=== PATIENT | male | born 1945 | race Caucasian/White ===

== ENCOUNTER 2021-02-22 17:48 | Inpatient (IN) | payer MEDICARE ==
[2021-02-22] MEDS ORDERED: Ondansetron PF 4 MG/2 ML Vial IVP PRN (20:15)
[2021-02-22] MEDS ORDERED: Acetaminophen 325 MG TAB PO PRN (20:15)
[2021-02-22] MEDS ORDERED: Dextrose 50% Abboject 50 ML SYRINGE SLOW IVP PRN (20:18)
[2021-02-22] MEDS ORDERED: Dextrose 5% in Water 1,000 ML IV PRN (20:18)
[2021-02-22] MEDS ORDERED: Nystatin Powder 15 GM BOT TOP PRN (20:55)
[2021-02-22] MEDS ORDERED: Famotidine 20 MG TAB PO SCH (21:00)
[2021-02-22 21:41] VITALS: BMI 31.8
[2021-02-22] MEDS: HumaLOG 300 UNITS/3 ML VIAL SC PRN (22:08)
[2021-02-22] MEDS ORDERED: Atorvastatin Calcium 40 MG TAB PO SCH (23:59)
[2021-02-23 03:42] LABS: INR-International Normal Ratio 1.1; PTT 41.8 sec (22.9-36.1); Prothrombin Time 14.4 sec (12.0-14.7)
[2021-02-23 03:48] LABS: #Eosinphils 0.4 thou/uL (0.0-0.7); #Lymphocytes 1.5 thou/uL (1.20-3.40); #Monocytes 1.4 thou/uL (0.11-0.59); #Neutrophils 8.8 thou/uL (1.40-6.50); %Basophils 0.4 % (0.0-1.0); %Lymphocytes 12.3 % (21.0-51.0); %Monocytes 11.7 % (0.0-10.0); %Neutrophils 72.6 % (42.0-75.0); Hemoglobin 11.4 g/dL (14.0-18.0); Mean Corpuscular HGB CONC 34.1 g/dL (32.0-36.0); Mean Corpuscular Hemoglobin 35.3 pg (27.0-31.0); Mean Platelet Volume 6.8 fL (7.4-10.4); Platelet Count 670 thou/uL (130-400); RBC Distribution Width 12.6 % (11.5-14.5); Red Blood Cell (RBC) Count 3.23 mill/uL (4.70-6.10); White Blood Cell (WBC) Count 12.1 thou/uL (4.8-10.8)
[2021-02-23 04:01] LABS: Anion Gap 13 mmol/L (10-20); BUN (Urea Nitrogen) 42 mg/dL (8.4-25.7); Calc. Creatinine Clearance 52 mL/min (70-130); Calcium 9.1 mg/dL (7.8-10.44); Carbon Dioxide 26 mmol/L (23-31); Chloride 107 mmol/L (98-107); Glucose 218 mg/dL (83-110); Potassium 3.8 mmol/L (3.5-5.1); Sodium 142 mmol/L (136-145)
[2021-02-23] MEDS: HumaLOG 300 UNITS/3 ML VIAL SC PRN (05:55)
[2021-02-23] MEDS ORDERED: Albumin 5% 500 ML ONE (08:28)
[2021-02-23] MEDS ORDERED: Hydroxyurea 500 MG CAP PO SCH (09:00)
[2021-02-23] MEDS ORDERED: Amoxicillin/Potassium Clav 875 MG TAB PO SCH (09:00)
[2021-02-23] MEDS ORDERED: Lisinopril 20 MG TAB PO SCH (09:00)
[2021-02-23] MEDS ORDERED: Carvedilol 6.25 MG TAB PO SCH (09:00)
[2021-02-23] MEDS ORDERED: Midazolam HCl 2 mg/2 ml Vial ONE (09:16)
[2021-02-23] MEDS ORDERED: Fentanyl 100 MCG/2 ML VIAL ONE (09:16)
[2021-02-23] MEDS ORDERED: Midazolam HCl 5 mg/5 ml Vial ONE (09:16)
[2021-02-23] MEDS ORDERED: Vecuronium 10 MG VIAL ONE ×3 (09:17→09:54)
[2021-02-23] MEDS ORDERED: Dexmedetomidine 200 MCG/2 ML VIAL ONE (09:17)
[2021-02-23] MEDS: Atorvastatin Calcium 40 MG TAB PO SCH (09:19)
[2021-02-23] MEDS ORDERED: Nitroglycerin 50 MG/250 ML BOT ONE (09:54)
[2021-02-23] MEDS ORDERED: Cardioplegic Soln 1,000 ML BAG ONE (09:54)
[2021-02-23] MEDS ORDERED: Heparin 30,000 units/30 ml VIAL ONE (09:54)
[2021-02-23] MEDS ORDERED: Ondansetron PF 4 MG/2 ML Vial ONE (09:54)
[2021-02-23] MEDS ORDERED: Aminocaproic Acid 5 GM/20 ML VIAL ONE (09:54)
[2021-02-23] MEDS ORDERED: Lidocaine 2% PF 100 mg/5 ml Syringe ONE (09:54)
[2021-02-23] MEDS ORDERED: Sodium Bicarb 50 MEQ/50 ML Abboject 8.4% SYRINGE ONE (09:54)
[2021-02-23] MEDS ORDERED: Ketorolac Tromethamine 30 MG/ML VIAL ONE (09:54)
[2021-02-23] MEDS ORDERED: Protamine Sulfate 250 MG/25 ML VIAL ONE (09:54)
[2021-02-23] MEDS ORDERED: Potassium Chloride 60 MEQ/30 ML VIAL ONE (09:54)
[2021-02-23] MEDS ORDERED: Dexamethasone 20 MG/5 ML VIAL ONE (09:54)
[2021-02-23] MEDS ORDERED: Thrombin 5000 UNITS/5 ML VIAL ONE (09:54)
[2021-02-23] MEDS ORDERED: Magnesium Sulfate 1 GM/2 ML VIAL ONE (09:54)
[2021-02-23] MEDS ORDERED: Calcium Chloride 1 GM/10 ML Abboject SYRINGE ONE (09:54)
[2021-02-23] MEDS ORDERED: PHENYLEPHRINE-NS 100 MCG/ML 10 ML SYRINGE ONE ×2 (09:54→12:16)
[2021-02-23] MEDS ORDERED: Mannitol 12.5 GM/50 ML ONE (09:54)
[2021-02-23] MEDS ORDERED: ePHEDrine Sulfate 50 MG/10 ML VIAL ONE (09:54)
[2021-02-23] MEDS ORDERED: Heparin 5,000 UNITS/ML VIAL ONE (09:54)
[2021-02-23] MEDS ORDERED: Lidocaine 1% PF 5 ML VIAL ONE ×2 (09:54)
[2021-02-23] MEDS ORDERED: Papaverine 60 MG/2 ML VIAL ONE (09:54)
[2021-02-23] MEDS ORDERED: Insulin Regular 300 UNITS/3 ML VIAL ONE (10:40)
[2021-02-23] MEDS ORDERED: Hetastarch 6% 500 ML 500 ML IVPB PRN (14:01)
[2021-02-23] MEDS ORDERED: Morphine 2 MG/ML VIAL SLOW IVP PRN (14:01)
[2021-02-23] MEDS ORDERED: Acetaminophen 325 MG TAB PO PRN (14:01)
[2021-02-23] MEDS ORDERED: Mag-Al 1200 mg/1200 mg/30 ML UDCUP PO PRN (14:01)
[2021-02-23] MEDS ORDERED: Fentanyl 100 MCG/2 ML VIAL SLOW IVP PRN ×2 (14:01)
[2021-02-23] MEDS ORDERED: Bisacodyl 10 MG SUPP PR PRN (14:01)
[2021-02-23] MEDS ORDERED: Guaifenesin DM 100-10/5 ML UDCUP PO PRN (14:01)
[2021-02-23] MEDS ORDERED: Ondansetron PF 4 MG/2 ML Vial IVP PRN (14:01)
[2021-02-23] MEDS ORDERED: Post-Op Insulin Drip Protocol IVPB ONE (14:01)
[2021-02-23] MEDS ORDERED: hydrALAZINE 20 MG/ML VIAL SLOW IVP PRN (14:01)
[2021-02-23] MEDS ORDERED: HYDROcodone/Acetaminophen 5/325 mg Tablet PO PRN ×2 (14:01)
[2021-02-23] MEDS ORDERED: niCARdipine 25 MG in Sodium Chloride 0.9% 250 ML 250 ML IVPB PRN (14:01)
[2021-02-23] MEDS ORDERED: Norepinephrine 8 MG/0.9% NS 250 ML IVPB PRN (14:01)
[2021-02-23] MEDS ORDERED: Bisacodyl 5 MG TAB PO PRN (14:01)
[2021-02-23] MEDS ORDERED: Nitroglycerin 50 MG/250 ML BOT 250 ML IVPB PRN (14:01)
[2021-02-23] MEDS ORDERED: DOBUTamine 500 mg/250 ml 250 ML ONE (14:06)
[2021-02-23 14:14] LABS: Hemoglobin 11.1 g/dL (14.0-18.0); Mean Corpuscular HGB CONC 33.7 g/dL (32.0-36.0); Mean Corpuscular Hemoglobin 35.2 pg (27.0-31.0); Mean Platelet Volume 6.6 fL (7.4-10.4); Platelet Count 498 thou/uL (130-400); RBC Distribution Width 12.7 % (11.5-14.5); Red Blood Cell (RBC) Count 3.15 mill/uL (4.70-6.10); White Blood Cell (WBC) Count 24.1 thou/uL (4.8-10.8)
[2021-02-23 14:18] LABS: INR-International Normal Ratio 1.3; Prothrombin Time 16.4 sec (12.0-14.7)
[2021-02-23] MEDS ORDERED: Dextrose 5% in Water 1,000 ML IV PRN (14:30)
[2021-02-23] MEDS ORDERED: HUMULIN R 100 UNITS in Sodium Chloride 0.9% 100 ML IVPB SCH (14:30)
[2021-02-23] MEDS: DOBUTamine 500 mg/250 ml 250 ML IVPB SCH (14:30)
[2021-02-23] MEDS ORDERED: Dextrose 50% Abboject 50 ML SYRINGE SLOW IVP PRN (14:30)
[2021-02-23] MEDS: Lactated Ringer's 1,000 ML IV SCH (14:30)
[2021-02-23] MEDS: CEFAZOLIN 2 GM in Premix Bag 1 BAG IVPB SCH ×2 (14:31→21:35)
[2021-02-23 14:36] LABS: Anion Gap 14 mmol/L (10-20); BUN (Urea Nitrogen) 36 mg/dL (8.4-25.7); Calc. Creatinine Clearance 57 mL/min (70-130); Calcium 8.5 mg/dL (7.8-10.44); Carbon Dioxide 23 mmol/L (23-31); Chloride 110 mmol/L (98-107); Glucose 105 mg/dL (83-110); Potassium 3.8 mmol/L (3.5-5.1); Sodium 143 mmol/L (136-145)
[2021-02-23] MEDS: Potassium Chloride 20 MEQ/100 ML PREMIX BAG IVPB PRN (15:04)
[2021-02-23 15:08] LABS: Band 17 % (5-11); Eosinophils 2 % (0-10); Lymphocytes 5 % (21-51); MDiff Complete? YES; Macrocytosis SLIGHT = 6-15 cells (100X) (0-5/hpf); Metamyelocyte 1 % (0-0); Monocytes 4 % (0-10); Myelocyte 1 % (0-0); Neutrophil 70 % (42-75); Platelet Morphology Comment Appears Increased; Polychromasia SLIGHT = 2-3 cells (100X) (0-2/hpf)
[2021-02-23 19:51] LABS: Hemoglobin 10.4 g/dL (14.0-18.0)
[2021-02-23 20:08] LABS: Potassium 4.4 mmol/L (3.5-5.1)
[2021-02-23] MEDS ORDERED: Famotidine 20 MG TAB PO SCH (21:00)
[2021-02-23] MEDS: Famotidine/PF 20 mg/2ml Vial SLOW IVP SCH (21:35)
[2021-02-24] MEDS: Lactated Ringer's 1,000 ML IV SCH (02:40)
[2021-02-24 04:31] LABS: #Lymphocytes 1.4 thou/uL (1.20-3.40); #Monocytes 1.8 thou/uL (0.11-0.59); #Neutrophils 13.5 thou/uL (1.40-6.50); %Eosinophils 0.2 % (0.0-10.0); %Lymphocytes 8.2 % (21.0-51.0); %Monocytes 10.5 % (0.0-10.0); Hemoglobin 9.4 g/dL (14.0-18.0); Mean Corpuscular HGB CONC 33.1 g/dL (32.0-36.0); Mean Corpuscular Hemoglobin 35.2 pg (27.0-31.0); Mean Platelet Volume 6.9 fL (7.4-10.4); Platelet Count 474 thou/uL (130-400); RBC Distribution Width 12.6 % (11.5-14.5); Red Blood Cell (RBC) Count 2.67 mill/uL (4.70-6.10); White Blood Cell (WBC) Count 16.6 thou/uL (4.8-10.8)
[2021-02-24 04:53] LABS: Anion Gap 18 mmol/L (10-20); BUN (Urea Nitrogen) 34 mg/dL (8.4-25.7); Calc. Creatinine Clearance 57 mL/min (70-130); Calcium 8.2 mg/dL (7.8-10.44); Carbon Dioxide 18 mmol/L (23-31); Chloride 110 mmol/L (98-107); Glucose 126 mg/dL (83-110); Sodium 142 mmol/L (136-145)
[2021-02-24] MEDS: CEFAZOLIN 2 GM in Premix Bag 1 BAG IVPB SCH (06:16)
[2021-02-24] MEDS: Potassium Chloride 20 MEQ/100 ML PREMIX BAG IVPB PRN (08:21)
[2021-02-24] MEDS: Polyethylene Glycol 3350 17 GM Packet PO SCH (08:22)
[2021-02-24] MEDS: Famotidine/PF 20 mg/2ml Vial SLOW IVP SCH (08:22)
[2021-02-24] MEDS: Atorvastatin Calcium 40 MG TAB PO SCH (08:22)
[2021-02-24] MEDS: Hydroxyurea 500 MG CAP PO SCH (08:22)
[2021-02-24] MEDS: Aspirin Chewable 81 MG TAB PO SCH (08:22)
[2021-02-24] MEDS: Insulin Regular 300 UNITS/3 ML VIAL SC PRN ×4 (08:34→21:56)
[2021-02-24] MEDS ORDERED: Hydroxyurea 500 MG CAP PO SCH (09:00)
[2021-02-24] MEDS ORDERED: Carvedilol 6.25 MG TAB PO SCH (09:30)
[2021-02-24] MEDS: Carvedilol 3.125 MG TAB PO SCH (16:32)
[2021-02-24] MEDS: DOBUTamine 500 mg/250 ml 250 ML IVPB SCH (16:42)
[2021-02-24] MEDS: Lantus 1000 UNITS/10 ML VIAL SC SCH (21:55)
[2021-02-24] MEDS: Famotidine 20 MG TAB PO SCH (21:55)
[2021-02-25] MEDS: Insulin Regular 300 UNITS/3 ML VIAL SC PRN ×4 (00:32→22:22)
[2021-02-25 05:26] LABS: #Eosinphils 0.1 thou/uL (0.0-0.7); #Lymphocytes 1.2 thou/uL (1.20-3.40); #Monocytes 2.3 thou/uL (0.11-0.59); #Neutrophils 13.9 thou/uL (1.40-6.50); %Basophils 0.1 % (0.0-1.0); %Eosinophils 0.8 % (0.0-10.0); %Lymphocytes 7.1 % (21.0-51.0); Hemoglobin 9.4 g/dL (14.0-18.0); Mean Corpuscular Hemoglobin 35.8 pg (27.0-31.0); Mean Platelet Volume 6.8 fL (7.4-10.4); Platelet Count 494 thou/uL (130-400); RBC Distribution Width 12.7 % (11.5-14.5); Red Blood Cell (RBC) Count 2.62 mill/uL (4.70-6.10); White Blood Cell (WBC) Count 17.5 thou/uL (4.8-10.8)
[2021-02-25 05:30] LABS: Hemoglobin A1c 7.7 % (4.0-6.0)
[2021-02-25 05:49] LABS: Anion Gap 13 mmol/L (10-20); BUN (Urea Nitrogen) 25 mg/dL (8.4-25.7); Calc. Creatinine Clearance 69 mL/min (70-130); Calcium 8.4 mg/dL (7.8-10.44); Carbon Dioxide 24 mmol/L (23-31); Cardiac Risk 2.9 (Less than 4.5); Chloride 107 mmol/L (98-107); Cholesterol 83 mg/dl (< 200 Desired); Glucose 207 mg/dL (83-110); HDL Cholesterol 29 mg/dL (>60 Neg Risk); LDL Cholesterol, Calculated 38 mg/dL; Potassium 4.1 mmol/L (3.5-5.1); Sodium 140 mmol/L (136-145); Triglycerides 82 mg/dL (Less than 150)
[2021-02-25] MEDS ORDERED: Nitroglycerin 0.4 MG TAB (25 Tab Bottle) SL PRN (07:35)
[2021-02-25] MEDS ORDERED: Mineral Oil ENEMA PR PRN (07:35)
[2021-02-25] MEDS ORDERED: Dextrose 5% in Water 1,000 ML IV PRN ×2 (09:00→12:15)
[2021-02-25] MEDS ORDERED: Dextrose 50% Abboject 50 ML SYRINGE SLOW IVP PRN (09:00)
[2021-02-25] MEDS: Furosemide 40 MG TAB PO SCH ×2 (09:34→21:33)
[2021-02-25] MEDS: Enoxaparin Sodium 40 MG/0.4 ML SYRINGE SC SCH (09:34)
[2021-02-25] MEDS: Polyethylene Glycol 3350 17 GM Packet PO SCH (09:34)
[2021-02-25] MEDS: Famotidine 20 MG TAB PO SCH ×2 (09:35→21:33)
[2021-02-25] MEDS: Hydroxyurea 500 MG CAP PO SCH (09:35)
[2021-02-25] MEDS: Lisinopril 2.5 MG TAB PO SCH (09:35)
[2021-02-25] MEDS: Potassium Chloride 20 MEQ TAB PO SCH (09:35)
[2021-02-25] MEDS: Aspirin Chewable 81 MG TAB PO SCH (09:36)
[2021-02-25] MEDS: Carvedilol 3.125 MG TAB PO SCH ×2 (09:36→16:33)
[2021-02-25] MEDS ORDERED: Dextrose 50% Abboject 50 ML SYRINGE IVP PRN (12:15)
[2021-02-25] MEDS ORDERED: Digoxin 0.5 MG/2 ML AMP ONE (17:59)
[2021-02-25] MEDS: Digoxin 0.5 MG/2 ML AMP SLOW IVP SCH ×2 (18:40→23:51)
[2021-02-25] MEDS ORDERED: DOBUTamine 500 mg/250 ml 250 ML IVPB SCH (18:45)
[2021-02-25] MEDS: Diltiazem HCl 125 MG, Admixture Fee 1 EACH in Sodium Chloride 0.9% 100 ML IVPB SCH (21:25)
[2021-02-25] MEDS: Atorvastatin Calcium 10 MG TAB PO SCH (21:36)
[2021-02-25] MEDS: Lantus 1000 UNITS/10 ML VIAL SC SCH (22:21)
[2021-02-26] MEDS: Digoxin 0.5 MG/2 ML AMP SLOW IVP SCH (06:14)
[2021-02-26] MEDS: Potassium Chloride 20 MEQ TAB PO SCH (09:25)
[2021-02-26] MEDS: Enoxaparin Sodium 40 MG/0.4 ML SYRINGE SC SCH (09:26)
[2021-02-26] MEDS: Polyethylene Glycol 3350 17 GM Packet PO SCH (09:26)
[2021-02-26] MEDS: Hydroxyurea 500 MG CAP PO SCH (09:26)
[2021-02-26] MEDS: Carvedilol 3.125 MG TAB PO SCH ×2 (09:26→16:57)
[2021-02-26] MEDS: Famotidine 20 MG TAB PO SCH ×2 (09:26→20:19)
[2021-02-26] MEDS: Aspirin Chewable 81 MG TAB PO SCH (09:26)
[2021-02-26] MEDS: Furosemide 40 MG TAB PO SCH ×2 (09:26→20:19)
[2021-02-26] MEDS: Lisinopril 2.5 MG TAB PO SCH (09:26)
[2021-02-26 12:45] LABS: Glucose 215 mg/dL (83-110)
[2021-02-26] MEDS: Diltiazem HCl 125 MG, Admixture Fee 1 EACH in Sodium Chloride 0.9% 100 ML IVPB SCH (16:55)
[2021-02-26 17:05] LABS: Glucose 220 mg/dL (83-110)
[2021-02-26] MEDS: Atorvastatin Calcium 10 MG TAB PO SCH (20:19)
[2021-02-26] MEDS: Lantus 1000 UNITS/10 ML VIAL SC SCH (21:48)
[2021-02-27 05:00] LABS: Anion Gap 17 mmol/L (10-20); BUN (Urea Nitrogen) 33 mg/dL (8.4-25.7); Calc. Creatinine Clearance 61 mL/min (70-130); Calcium 8.5 mg/dL (7.8-10.44); Carbon Dioxide 21 mmol/L (23-31); Chloride 106 mmol/L (98-107); Glucose 141 mg/dL (83-110); Potassium 3.8 mmol/L (3.5-5.1); Sodium 140 mmol/L (136-145)
[2021-02-27 07:36] LABS: Glucose 141 mg/dL (83-110)
[2021-02-27] MEDS: Lisinopril 2.5 MG TAB PO SCH (08:43)
[2021-02-27] MEDS: Potassium Chloride 20 MEQ TAB PO SCH (08:43)
[2021-02-27] MEDS: Polyethylene Glycol 3350 17 GM Packet PO SCH (08:43)
[2021-02-27] MEDS: Famotidine 20 MG TAB PO SCH ×2 (08:43→20:40)
[2021-02-27] MEDS: Carvedilol 3.125 MG TAB PO SCH ×2 (08:43→17:04)
[2021-02-27] MEDS: Aspirin Chewable 81 MG TAB PO SCH (08:43)
[2021-02-27] MEDS: Enoxaparin Sodium 40 MG/0.4 ML SYRINGE SC SCH (08:44)
[2021-02-27] MEDS: Hydroxyurea 500 MG CAP PO SCH (08:44)
[2021-02-27] MEDS: Furosemide 40 MG TAB PO SCH ×2 (08:57→20:40)
[2021-02-27] MEDS: Insulin Regular 300 UNITS/3 ML VIAL SC PRN ×2 (11:42→17:59)
[2021-02-27 11:57] LABS: Glucose 256 mg/dL (83-110)
[2021-02-27 17:39] LABS: Glucose 173 mg/dL (83-110)
[2021-02-27] MEDS: Diltiazem HCl 125 MG, Admixture Fee 1 EACH in Sodium Chloride 0.9% 100 ML IVPB SCH (18:00)
[2021-02-27] MEDS: Lantus 1000 UNITS/10 ML VIAL SC SCH (20:44)
[2021-02-28] MEDS ORDERED: Lisinopril 2.5 MG TAB PO SCH (06:24)
[2021-02-28 08:26] LABS: #Basophils 0.1 thou/uL (0.0-0.2); #Eosinphils 0.3 thou/uL (0.0-0.7); #Lymphocytes 1.8 thou/uL (1.20-3.40); #Monocytes 1.4 thou/uL (0.11-0.59); #Neutrophils 9.7 thou/uL (1.40-6.50); %Basophils 0.6 % (0.0-1.0); %Eosinophils 2.4 % (0.0-10.0); %Lymphocytes 13.5 % (21.0-51.0); %Monocytes 10.4 % (0.0-10.0); %Neutrophils 73.2 % (42.0-75.0); Mean Corpuscular HGB CONC 33.8 g/dL (32.0-36.0); Mean Corpuscular Hemoglobin 35.3 pg (27.0-31.0); Mean Platelet Volume 7.3 fL (7.4-10.4); Platelet Count 577 thou/uL (130-400); RBC Distribution Width 12.6 % (11.5-14.5); Red Blood Cell (RBC) Count 2.84 mill/uL (4.70-6.10); White Blood Cell (WBC) Count 13.2 thou/uL (4.8-10.8)
[2021-02-28 08:46] LABS: Anion Gap 14 mmol/L (10-20); BUN (Urea Nitrogen) 34 mg/dL (8.4-25.7); Calc. Creatinine Clearance 56 mL/min (70-130); Calcium 8.4 mg/dL (7.8-10.44); Carbon Dioxide 24 mmol/L (23-31); Chloride 103 mmol/L (98-107); Glucose 139 mg/dL (83-110); Sodium 137 mmol/L (136-145)
[2021-02-28] MEDS ORDERED: Lisinopril 5 MG TAB PO SCH (09:00)
[2021-02-28] MEDS: Carvedilol 3.125 MG TAB PO SCH (09:31)
[2021-02-28] MEDS: Hydroxyurea 500 MG CAP PO SCH (09:33)
[2021-02-28] MEDS: Furosemide 40 MG TAB PO SCH ×2 (09:33→21:09)
[2021-02-28] MEDS: Famotidine 20 MG TAB PO SCH ×2 (09:33→21:09)
[2021-02-28] MEDS: Amiodarone 200 MG TAB PO SCH ×2 (09:33→21:09)
[2021-02-28] MEDS: Enoxaparin Sodium 40 MG/0.4 ML SYRINGE SC SCH (09:33)
[2021-02-28] MEDS: Potassium Chloride 20 MEQ TAB PO SCH (09:33)
[2021-02-28] MEDS: Aspirin Chewable 81 MG TAB PO SCH (09:33)
[2021-02-28] MEDS: Polyethylene Glycol 3350 17 GM Packet PO SCH (09:33)
[2021-02-28] MEDS: Insulin Regular 300 UNITS/3 ML VIAL SC PRN ×2 (11:49→16:35)
[2021-02-28 12:54] LABS: Actual Bicarbonate (HCO3a) 24.3 mEq/L (22-28); Analyzer IN Cardio OR; Base Excess (BEa) 0.2 mEq/L (-2.0 to +3.0); CO2 Tension 37.2 mmHg (35.0-45.0); Calcium, Ionized (arterial) 1.16 mmol/L (1.12-1.30); Carboxyhemoglobin (COHb) 0.6 gm% (0.0-3.0); Hemoglobin (Hb) 11.3 g/dL (14.0-18.0); O2 Tension (PaO2), arterial 356.1 mmHg (> 70.0); Potassium - ABG Lab 4.07 mmol/L (3.70-5.30); pH, Arterial 7.43 (7.35-7.45)
[2021-02-28 12:55] LABS: Actual Bicarbonate (HCO3a) 23.4 mEq/L (22-28); Analyzer IN Cardio OR; Base Excess (BEa) -1.3 mEq/L (-2.0 to +3.0); CO2 Tension 39.4 mmHg (35.0-45.0); Calcium, Ionized (arterial) 1.15 mmol/L (1.12-1.30); Carboxyhemoglobin (COHb) 0.7 gm% (0.0-3.0); Hemoglobin (Hb) 11.2 g/dL (14.0-18.0); O2 Tension (PaO2), arterial 231.1 mmHg (> 70.0); Potassium - ABG Lab 3.65 mmol/L (3.70-5.30); pH, Arterial 7.39 (7.35-7.45)
[2021-02-28 12:56] LABS: Actual Bicarbonate (HCO3a) 27.4 mEq/L (22-28); Analyzer IN Cardio OR; Base Excess (BEa) 0.7 mEq/L (-2.0 to +3.0); CO2 Tension 56.9 mmHg (35.0-45.0); Calcium, Ionized (arterial) 1.02 mmol/L (1.12-1.30); Carboxyhemoglobin (COHb) 0.7 gm% (0.0-3.0); Hemoglobin (Hb) 7.8 g/dL (14.0-18.0); O2 Tension (PaO2), arterial 339.6 mmHg (> 70.0); Potassium - ABG Lab 4.09 mmol/L (3.70-5.30)
[2021-02-28 12:56] LABS: Actual Bicarbonate (HCO3a) 22.4 mEq/L (22-28); Analyzer IN Cardio OR; Base Excess (BEa) -1.4 mEq/L (-2.0 to +3.0); CO2 Tension 34.4 mmHg (35.0-45.0); Calcium, Ionized (arterial) 1.16 mmol/L (1.12-1.30); Carboxyhemoglobin (COHb) 0.3 gm% (0.0-3.0); Hemoglobin (Hb) 10.2 g/dL (14.0-18.0); O2 Tension (PaO2), arterial 486.5 mmHg (> 70.0); Potassium - ABG Lab 3.55 mmol/L (3.70-5.30); pH, Arterial 7.43 (7.35-7.45)
[2021-02-28 12:56] LABS: Actual Bicarbonate (HCO3a) 21.3 mEq/L (22-28); Analyzer IN Cardio OR; Base Excess (BEa) -2.1 mEq/L (-2.0 to +3.0); CO2 Tension 30.4 mmHg (35.0-45.0); Calcium, Ionized (arterial) 0.78 mmol/L (1.12-1.30); Hemoglobin (Hb) 7.6 g/dL (14.0-18.0); O2 Tension (PaO2), arterial 386.3 mmHg (> 70.0); Potassium - ABG Lab 3.91 mmol/L (3.70-5.30); pH, Arterial 7.46 (7.35-7.45)
[2021-02-28 12:57] LABS: Puncture Site Arterial Line
[2021-02-28 12:57] LABS: Puncture Site Arterial Line
[2021-02-28 12:58] LABS: Puncture Site Arterial Line
[2021-02-28 12:58] LABS: Puncture Site Arterial Line
[2021-02-28 12:58] LABS: Puncture Site Arterial Line
[2021-02-28] MEDS: Carvedilol 6.25 MG TAB PO SCH (16:34)
[2021-02-28] MEDS: Lantus 1000 UNITS/10 ML VIAL SC SCH (21:08)
[2021-02-28] MEDS: Atorvastatin Calcium 10 MG TAB PO SCH (21:09)
[2021-03-01 04:49] LABS: ALT (SGPT) 13 U/L (8-55); AST (SGOT) 29 U/L (5-34); Albumin 3.1 g/dL (3.4-4.8); Alkaline Phosphatase 66 U/L (40-110); Bilirubin, Direct 0.5 mg/dL (0.1-0.3); Bilirubin, Total 0.8 mg/dL (0.2-1.2); Protein, Total 6.8 g/dL (5.8-8.1)
[2021-03-01 09:07] LABS: Glucose 193 mg/dL (83-110)
[2021-03-01] MEDS: Famotidine 20 MG TAB PO SCH ×2 (09:10→20:29)
[2021-03-01] MEDS: Carvedilol 6.25 MG TAB PO SCH ×2 (09:11→17:14)
[2021-03-01] MEDS: Aspirin Chewable 81 MG TAB PO SCH (09:11)
[2021-03-01] MEDS: Enoxaparin Sodium 40 MG/0.4 ML SYRINGE SC SCH (09:11)
[2021-03-01] MEDS: Polyethylene Glycol 3350 17 GM Packet PO SCH (09:11)
[2021-03-01] MEDS: Hydroxyurea 500 MG CAP PO SCH (09:11)
[2021-03-01] MEDS: Lisinopril 5 MG TAB PO SCH ×2 (09:11→20:29)
[2021-03-01] MEDS: Amiodarone 200 MG TAB PO SCH ×2 (09:11→20:29)
[2021-03-01] MEDS: Insulin Regular 300 UNITS/3 ML VIAL SC PRN ×2 (11:46→17:14)
[2021-03-01] MEDS: Lantus 1000 UNITS/10 ML VIAL SC SCH (20:29)
[2021-03-01] MEDS: Atorvastatin Calcium 10 MG TAB PO SCH (20:29)
[2021-03-02] MEDS: Amiodarone 200 MG TAB PO SCH ×2 (08:06→20:24)
[2021-03-02] MEDS: Famotidine 20 MG TAB PO SCH ×2 (08:06→20:24)
[2021-03-02] MEDS: Polyethylene Glycol 3350 17 GM Packet PO SCH (08:06)
[2021-03-02] MEDS: Lisinopril 5 MG TAB PO SCH ×2 (08:06→20:24)
[2021-03-02] MEDS: Hydroxyurea 500 MG CAP PO SCH (08:06)
[2021-03-02] MEDS: Enoxaparin Sodium 40 MG/0.4 ML SYRINGE SC SCH (08:06)
[2021-03-02] MEDS: Carvedilol 6.25 MG TAB PO SCH ×2 (08:06→17:47)
[2021-03-02] MEDS: Aspirin Chewable 81 MG TAB PO SCH (08:06)
[2021-03-02 08:35] LABS: Glucose 135 mg/dL (83-110)
[2021-03-02] MEDS: Insulin Regular 300 UNITS/3 ML VIAL SC PRN ×2 (11:25→18:10)
[2021-03-02] MEDS: Atorvastatin Calcium 10 MG TAB PO SCH (20:24)
[2021-03-02 20:43] VITALS: BP 133/62; TEMP 97.8
[2021-03-14] MEDS ORDERED: Amiodarone 200 MG TAB PO SCH (09:00)
[2021-03-28] MEDS ORDERED: Amiodarone 200 MG TAB PO SCH (09:00)
== END 2021-03-02 20:49 | disposition home health service (06) | DRG 235 ==
LOC: CCU 19:30 → 2NO 02-25 16:03
PROVIDERS: ADMIT Internal Medicine; ATTEND Internal Medicine
PROC: 021109W Bypass Coronary Artery, Two Arteries from Aorta with Autologous Venous Tissue, Open Approach (ICD-10-PCS; principal; 2021-02-23)
PROC: 02100Z9 Bypass Coronary Artery, One Artery from Left Internal Mammary, Open Approach (ICD-10-PCS; 2021-02-23)
PROC: 06BQ3ZZ Excision of Left Saphenous Vein, Percutaneous Approach (ICD-10-PCS; 2021-02-23)
PROC: 5A1221Z Performance of Cardiac Output, Continuous (ICD-10-PCS; 2021-02-23)
DX: I21.4 Non-ST elevation (NSTEMI) myocardial infarction (principal); I50.43 Acute on chronic combined systolic (congestive) and diastolic (congestive) heart failure; J18.9 Pneumonia, unspecified organism; I47.1 Supraventricular tachycardia; I13.0 Hypertensive heart and chronic kidney disease with heart failure and stage 1 through stage 4 chronic kidney disease, or unspecified chronic kidney disease; I48.92 Unspecified atrial flutter; D47.3 Essential (hemorrhagic) thrombocythemia; E78.5 Hyperlipidemia, unspecified; E11.51 Type 2 diabetes mellitus with diabetic peripheral angiopathy without gangrene; N18.30 Chronic kidney disease, stage 3 unspecified; E11.22 Type 2 diabetes mellitus with diabetic chronic kidney disease; I25.5 Ischemic cardiomyopathy; D53.9 Nutritional anemia, unspecified; D72.829 Elevated white blood cell count, unspecified; Z20.822 Contact with and (suspected) exposure to COVID-19; I48.0 Paroxysmal atrial fibrillation; Z87.891 Personal history of nicotine dependence
CPT/HCPCS: 36415; 36416; 36430; 71045; 80048; 80061; 80076; 82805; 82947; 83036; 83735; 83880; 84145; 84439; 84443; 85025; 85610; 85730; 86850; 86900; 86901; 93005; 93010; 93306; 93798; J0360; J0690; J1100; J1160; J1250; J1642; J1644; J1650; J1815; J1885; J2001; J2150; J2250; J2405; J2440; J2720; J3010; J3370; J3475; J3480; J3490; P9045; S0017; S0028

== ENCOUNTER 2021-12-15 14:36 | Outpatient (CLI) | payer MEDICARE | END 2021-12-15 14:37 | disposition home or self-care (01) | LOC: BICRAD 14:36 | PROVIDERS: ATTEND Internal Medicine Medical Oncology | DX: R09.89 Other specified symptoms and signs involving the circulatory and respiratory systems (principal); J84.9 Interstitial pulmonary disease, unspecified | CPT/HCPCS: 71046 ==